=== PATIENT | female | born 1995 | race Caucasian/White ===

== ENCOUNTER 2016-09-30 07:08 | Emergency (ER) | payer OTHER ==
--- NOTE | 2016-09-30 07:47 | EDDOCDS ---
Nurse's Notes [facility] Name: Brenda Ramirez Age: 21 yrs Sex: Female : 1995 Arrival Date: 09/30/2016 Time: 07:08 Bed I2 / M2 Private MD: Diagnosis: Urinary tract infection, site not specified;Acute cystitis with hematuria Presentation: 09/30 07:17 Presenting complaint: Patient states: Urinary frequency over the past week pain with mlb1 urination and hematuria this am. Adult Sepsis Screening: The patient does not have new or worsening altered mentation. Patient's respiratory rate is less than 22. Systolic blood pressure is greater than 100. Patient has a qSOFA score of 0- Negative Sepsis Screen. Suicide/Homicide risk assessment- the patient denies having any suicidal and/or homicidal ideations and does not present with any other emotional, behavioral or mental health complaints. 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 Transition of care: patient was not received from another setting of care. 07:17 Acuity: TERRENCE Level 4 mlb1 07:17 Method Of Arrival: Walkin/Carried/Asstd mlb1 Triage Assessment: 07:20 General: Appears in no apparent distress, Behavior is appropriate for age, cooperative. mlb1 Pain: Denies pain. Pt Declines HIV testing. : Reports burning with urination pain with urination. 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 unknown for depression daily 2. NuvaRing 0.12-0.015 mg/24 hr vaginal ring 1 vaginal ring once moly 3. unknown for anxiety - PMHx: Ovarian cyst; Anxiety; Depression; - PSHx: Laparoscopy; Appendectomy; - Social history: Smoking status: Patient states was never smoker of tobacco. No barriers to communication noted, The patient speaks fluent Nicaraguan, Speaks appropriately for age. - Family history: No immediate family members are acutely ill. - : The pt / caregiver states he / she is not on anticoagulants. Home medication list is obtained from the patient. - Exposure Risk Screening:: None identified. Screenin:45 Screening information is obtained from the patient. Fall risk: No risks identified. nn1 Assistance ADL's: requires no assistance with activities of daily living. Abuse/DV Screen: The patient / caregiver reports he/she is: not in a situation that causes fear, pain or injury. Nutritional screening: No deficits noted. Advance Directives: Currently, there is no health care proxy. home support is adequate. Assessment: 07:42 General: Appears in no apparent distress, comfortable, Behavior is appropriate for age, nn1 cooperative. Pain: Location: pelvis. Neurological: Level of Consciousness is awake, alert, obeys commands. Respiratory: No deficits noted. : Urine is blood tinged, Reports burning with urination hematuria vaginal bleeding that is. Derm: Skin is pink, warm & dry. Vital Signs: 07:20 BP 138 / 91; Pulse 78; Resp 16; Temp 98.6(TE); Pulse Ox 98% on R/A; Weight 72.57 kg mlb1 (R); Height 5 ft. 5 in. (165.10 cm); Pain 0/10; 07:20 Body Mass Index 26.63 (72.57 kg, 165.10 cm) mlb1 Vitals: 07:20 Log In Time: September 30, 2016 at 07:08. mlb1 ED Course: 07:09 Patient visited by Porter Watkins Reg. pm4 07:09 Patient moved to Waiting pm4 07:17 Patient visited by Leodan Villatoro, CECY. mlb1 07:18 Triage Initiated mlb1 07:21 Patient visited by Leodan Villatoro RN. mlb1 07:21 Patient moved to I2 / M2 mlb1 07:22 Bert Gao PA is PHCP. btw 07:22 Estephania Fung MD is Attending Physician. btw 07:22 Patient visited by Bert Gao PA. btw 07:31 Patient visited by Luana Sinha PCA. jlf 07:40 [facility]. btw 07:45 No IV's were initiated during this patient's visit. No procedures done that require nn1 assistance. Urine collected. Clean catch specimen. Urine specimen sent to lab. 07:46 The patient / caregiver is instructed regarding the plan of care and ED course. nn1 Point of Care Testing: Urine Dip: 07:40 pH: 1.02; ; Specific [place]: 5.0; Ketones: Negative; Glucose: Negative; Protein: 500 nn1 mg/dL; Leukocytes: Positive (++); Nitrite: Positive (+) ; Blood: 250 Alex/ L; Bilirubin: Negative ; Urobilinogen: Normal 07:40 Exp: 08/2017; Lot #: [id number]; nn1 Ranges: Order Results: There are currently no results for this order. Outcome: 07:41 Discharge ordered by Provider. btw 07:45 Discharge Assessment: Patient awake, alert and oriented x 3. No cognitive and/or nn1 functional deficits noted. Patient verbalized understanding of disposition instructions. patient administered narcotics - no. The following High Risk Discharge criteria are identified: None. Discharged to home ambulatory. Condition: good Condition: stable. No special radiology studies were completed. Property :Personal belongings accompany Pt. 07:46 Patient left the ED. nn1 Signatures: Leodan Villatoro, RN RN mlb1 Bert Gao PA PA btw Luana Sinha, EDUARDO ARTIST AGENT Homero Loja,CECY RN nn1 Porter Watkins, Reg Reg pm4 MTDD
--- NOTE | 2016-09-30 07:47 | EDDOCDS ---
Physician Documentation [facility] Name: Brenda Ramirez Age: 21 yrs Sex: Female : 1995 Arrival Date: 09/30/2016 Time: 07:08 Bed I2 / M2 Private MD: Disposition: 09/30/16 07:41 Discharged to Home/Self Care. Impression: Urinary tract infection, site not specified, Acute cystitis with hematuria. - Condition is Stable. - Discharge Instructions: Urinary Tract Infection, [id number]. - Prescriptions for Pyridium 200 mg Oral Tablet - take 1 tablet by ORAL route every 8 hours for 3 days; 9 tablet. Bactrim DS 800- 160 mg Oral Tablet - take 1 tablet by ORAL route every 12 hours for 10 days; 20 tablet. - Medication Reconciliation, Local Pharmacy Hours form. - Follow up: Akil Gilliam [facility]; When: Call to arrange an appointment; Reason: Further diagnostic work-up, Recheck today's complaints, Continuance of care. - Problem is new. - Symptoms are unchanged. Historical: - Allergies: no known allergies; - Home Meds: 1. unknown for depression daily 2. NuvaRing 0.12-0.015 mg/24 hr vaginal ring 1 vaginal ring once moly 3. unknown for anxiety - PMHx: Ovarian cyst; Anxiety; Depression; - PSHx: Laparoscopy; Appendectomy; - Social history: Smoking status: Patient states was never smoker of tobacco. No barriers to communication noted, The patient speaks fluent Belarusian, Speaks appropriately for age. - Family history: No immediate family members are acutely ill. - : The pt / caregiver states he / she is not on anticoagulants. Home medication list is obtained from the patient. - Exposure Risk Screening:: None identified. 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 5 in. (165.10 cm); Pain 0/10; 07:20 Body Mass Index 26.63 (72.57 kg, 165.10 cm) mlb1 MDM: 07:20 Urine Dip ordered. btw 07:21 Urine Culture Ordered. EDMS Point of Care Testing: Urine Dip: 07:40 pH: 1.02; ; Specific [place]: 5.0; Ketones: Negative; Glucose: Negative; Protein: 500 nn1 mg/dL; Leukocytes: Positive (++); Nitrite: Positive (+) ; Blood: 250 Alex/ L; Bilirubin: Negative ; Urobilinogen: Normal 07:40 Exp: 08/2017; Lot #: [id number]; nn1 Ranges: Signatures: Dispatcher [employer] [facility] Leodan Villatoro RN RN mlb1 Bert Gao PA PA btw Nunez, Nikkole,RN RN nn1 MTDD
--- NOTE | 2016-10-02 08:47 | EDDOCDS ---
Nurse's Notes [facility] Name: Brenda Ramirez Age: 21 yrs Sex: Female : 1995 Arrival Date: 09/30/2016 Time: 07:08 Bed I2 / M2 Private MD: Diagnosis: Urinary tract infection, site not specified;Acute cystitis with hematuria Presentation: 09/30 07:17 Presenting complaint: Patient states: Urinary frequency over the past week pain with mlb1 urination and hematuria this am. Adult Sepsis Screening: The patient does not have new or worsening altered mentation. Patient's respiratory rate is less than 22. Systolic blood pressure is greater than 100. Patient has a qSOFA score of 0- Negative Sepsis Screen. Suicide/Homicide risk assessment- the patient denies having any suicidal and/or homicidal ideations and does not present with any other emotional, behavioral or mental health complaints. 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 Transition of care: patient was not received from another setting of care. 07:17 Acuity: TERRENCE Level 4 mlb1 07:17 Method Of Arrival: Walkin/Carried/Asstd mlb1 Triage Assessment: 07:20 General: Appears in no apparent distress, Behavior is appropriate for age, cooperative. mlb1 Pain: Denies pain. Pt Declines HIV testing. : Reports burning with urination pain with urination. 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 unknown for depression daily 2. NuvaRing 0.12-0.015 mg/24 hr vaginal ring 1 vaginal ring once moly 3. unknown for anxiety - PMHx: Ovarian cyst; Anxiety; Depression; - PSHx: Laparoscopy; Appendectomy; - Social history: Smoking status: Patient states was never smoker of tobacco. No barriers to communication noted, The patient speaks fluent [place]ibian, Speaks appropriately for age. - Family history: No immediate family members are acutely ill. - : The pt / caregiver states he / she is not on anticoagulants. Home medication list is obtained from the patient. - Exposure Risk Screening:: None identified. Screenin:45 Screening information is obtained from the patient. Fall risk: No risks identified. nn1 Assistance ADL's: requires no assistance with activities of daily living. Abuse/DV Screen: The patient / caregiver reports he/she is: not in a situation that causes fear, pain or injury. Nutritional screening: No deficits noted. Advance Directives: Currently, there is no health care proxy. home support is adequate. Assessment: 07:42 General: Appears in no apparent distress, comfortable, Behavior is appropriate for age, nn1 cooperative. Pain: Location: pelvis. Neurological: Level of Consciousness is awake, alert, obeys commands. Respiratory: No deficits noted. : Urine is blood tinged, Reports burning with urination hematuria vaginal bleeding that is. Derm: Skin is pink, warm & dry. Vital Signs: 07:20 BP 138 / 91; Pulse 78; Resp 16; Temp 98.6(TE); Pulse Ox 98% on R/A; Weight 72.57 kg mlb1 (R); Height 5 ft. 5 in. (165.10 cm); Pain 0/10; 07:20 Body Mass Index 26.63 (72.57 kg, 165.10 cm) mlb1 Vitals: 07:20 Log In Time: September 30, 2016 at 07:08. mlb1 ED Course: 07:09 Patient visited by Porter Watkins Reg. pm4 07:09 Patient moved to Waiting pm4 07:17 Patient visited by Leodan Villatoro, RN. mlb1 07:18 Triage Initiated mlb1 07:21 Patient visited by Leodan Villatoro, CECY. mlb1 07:21 Patient moved to I2 / M2 mlb1 07:22 Bert Gao PA is PHCP. btw 07:22 Estephania Fung MD is Attending Physician. btw 07:22 Patient visited by Bert Gao PA. btw 07:31 Patient visited by Luana Sinha PCA. jlf 07:40 [facility]. btw 07:45 No IV's were initiated during this patient's visit. No procedures done that require nn1 assistance. Urine collected. Clean catch specimen. Urine specimen sent to lab. 07:46 The patient / caregiver is instructed regarding the plan of care and ED course. nn1 13:18 T-Sheet-- Draft Copy was scanned into [employer] and attached to record. Point of Care Testing: Urine Dip: 07:40 pH: 1.02; ; Specific [place]: 5.0; Ketones: Negative; Glucose: Negative; Protein: 500 nn1 mg/dL; Leukocytes: Positive (++); Nitrite: Positive (+) ; Blood: 250 Alex/ L; Bilirubin: Negative ; Urobilinogen: Normal 07:40 Exp: 08/2017; Lot #: [id number]; nn1 Ranges: Order Results: Lab Order: Urine Culture; SPEC'M 09/30/16 07:33 Test: URINE CULTURE; Value: URINE CULTURE RESULT NO GROWTH CLINICAL SIGNIFICANCE 1 ORGANISM; Status: F Outcome: 07:41 Discharge ordered by Provider. btw 07:45 Discharge Assessment: Patient awake, alert and oriented x 3. No cognitive and/or nn1 functional deficits noted. Patient verbalized understanding of disposition instructions. patient administered narcotics - no. The following High Risk Discharge criteria are identified: None. Discharged to home ambulatory. Condition: good Condition: stable. No special radiology studies were completed. Property :Personal belongings accompany Pt. 07:46 Patient left the ED. nn1 Signatures: Johanna Umaña, Reg Reg gb Leodan Villatoro RN RN mlb1 Bert Gao PA PA btw Luana Sinha, EDUARDO CONVEYOR MECHANIC Homero LojaRN RN nn1 Porter Watkins, Reg Reg pm4 Chart Complete MTDD
--- NOTE | 2016-10-02 08:47 | EDDOCDS ---
Physician Documentation [facility] Name: Brenda Ramirez Age: 21 yrs Sex: Female : 1995 Arrival Date: 09/30/2016 Time: 07:08 Bed I2 / M2 Private MD: Disposition: 09/30/16 07:41 Discharged to Home/Self Care. Impression: Urinary tract infection, site not specified, Acute cystitis with hematuria. - Condition is Stable. - Discharge Instructions: Urinary Tract Infection, [id number]. - Prescriptions for Pyridium 200 mg Oral Tablet - take 1 tablet by ORAL route every 8 hours for 3 days; 9 tablet. Bactrim DS 800- 160 mg Oral Tablet - take 1 tablet by ORAL route every 12 hours for 10 days; 20 tablet. - Medication Reconciliation, Local Pharmacy Hours form. - Follow up: Akil Gilliam [facility]; When: Call to arrange an appointment; Reason: Further diagnostic work-up, Recheck today's complaints, Continuance of care. - Problem is new. - Symptoms are unchanged. Historical: - Allergies: no known allergies; - Home Meds: 1. unknown for depression daily 2. NuvaRing 0.12-0.015 mg/24 hr vaginal ring 1 vaginal ring once moly 3. unknown for anxiety - PMHx: Ovarian cyst; Anxiety; Depression; - PSHx: Laparoscopy; Appendectomy; - Social history: Smoking status: Patient states was never smoker of tobacco. No barriers to communication noted, The patient speaks fluent Turkish, Speaks appropriately for age. - Family history: No immediate family members are acutely ill. - : The pt / caregiver states he / she is not on anticoagulants. Home medication list is obtained from the patient. - Exposure Risk Screening:: None identified. 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 5 in. (165.10 cm); Pain 0/10; 07:20 Body Mass Index 26.63 (72.57 kg, 165.10 cm) mlb1 MDM: 07:20 Urine Dip ordered. btw 07:21 Urine Culture Ordered. EDMS 13:18 T-Sheet-- Draft Copy was scanned into [employer] and attached to record. Point of Care Testing: Urine Dip: 07:40 pH: 1.02; ; Specific [place]: 5.0; Ketones: Negative; Glucose: Negative; Protein: 500 nn1 mg/dL; Leukocytes: Positive (++); Nitrite: Positive (+) ; Blood: 250 Alex/ L; Bilirubin: Negative ; Urobilinogen: Normal 07:40 Exp: 08/2017; Lot #: [id number]; nn1 Ranges: Signatures: Dispatcher [employer] EDMS Johanna Umaña, Reg Reg gb Leodan Villatoro RN RN mlb1 Bert Gao PA PA btw Nunez, NikkoleRN RN nn1 The chart was reviewed and I authenticate all verbal orders and agree with the evaluation and treatment provided.Attachments: 13:18 T-Sheet-- Draft Copy gb Chart Complete MTDD
--- NOTE | 2016-10-02 08:47 | EDDOCDS ---
Physician Documentation [facility] Name: Brenda Ramirez Age: 21 yrs Sex: Female : 1995 Arrival Date: 09/30/2016 Time: 07:08 Bed I2 / M2 Private MD: Disposition: 09/30/16 07:41 Discharged to Home/Self Care. Impression: Urinary tract infection, site not specified, Acute cystitis with hematuria. - Condition is Stable. - Discharge Instructions: Urinary Tract Infection, Rmlj-[id number]. - Prescriptions for Pyridium 200 mg Oral Tablet - take 1 tablet by ORAL route every 8 hours for 3 days; 9 tablet. Bactrim DS 800- 160 mg Oral Tablet - take 1 tablet by ORAL route every 12 hours for 10 days; 20 tablet. - Medication Reconciliation, Local Pharmacy Hours form. - Follow up: Akil Gilliam [facility]; When: Call to arrange an appointment; Reason: Further diagnostic work-up, Recheck today's complaints, Continuance of care. - Problem is new. - Symptoms are unchanged. Historical: - Allergies: no known allergies; - Home Meds: 1. unknown for depression daily 2. NuvaRing 0.12-0.015 mg/24 hr vaginal ring 1 vaginal ring once moly 3. unknown for anxiety - PMHx: Ovarian cyst; Anxiety; Depression; - PSHx: Laparoscopy; Appendectomy; - Social history: Smoking status: Patient states was never smoker of tobacco. No barriers to communication noted, The patient speaks fluent Malay, Speaks appropriately for age. - Family history: No immediate family members are acutely ill. - : The pt / caregiver states he / she is not on anticoagulants. Home medication list is obtained from the patient. - Exposure Risk Screening:: None identified. 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 5 in. (165.10 cm); Pain 0/10; 07:20 Body Mass Index 26.63 (72.57 kg, 165.10 cm) mlb1 MDM: 07:20 Urine Dip ordered. btw 07:21 Urine Culture Ordered. EDMS 13:18 T-Sheet-- Draft Copy was scanned into [employer] and attached to record. Point of Care Testing: Urine Dip: 07:40 pH: 1.02; ; Specific [place]: 5.0; Ketones: Negative; Glucose: Negative; Protein: 500 nn1 mg/dL; Leukocytes: Positive (++); Nitrite: Positive (+) ; Blood: 250 Alex/ L; Bilirubin: Negative ; Urobilinogen: Normal 07:40 Exp: 08/2017; Lot #: [id number]; nn1 Ranges: Signatures: Dispatcher [employer] EDMS Johanna Umaña, Reg Reg gb Leodan Villatoro RN RN mlb1 Bert Gao PA PA btw Nunez, NikkoleRN RN nn1 The chart was reviewed and I authenticate all verbal orders and agree with the evaluation and treatment provided.Attachments: 13:18 T-Sheet-- Draft Copy gb Chart Complete MTDD
== END 2016-09-30 07:46 | disposition home or self-care (01) ==
LOC: M ED 07:08
DX: N30.01 Acute cystitis with hematuria (principal); N83.209 Unspecified ovarian cyst, unspecified side; F41.9 Anxiety disorder, unspecified; F32.9 Major depressive disorder, single episode, unspecified; Z79.3 Long term (current) use of hormonal contraceptives; Z79.899 Other long term (current) drug therapy

== ENCOUNTER → 2017-03-02 | Outpatient (CLI) | payer OTHER ==
[~2017-03-02] MED LIST: CONRAY-43 43% 50ML VIAL (Q9960) As Ordered ONE; LIDOCAINE 1% MDV 20ML VIAL As Ordered ONE; TRIAMCINOLONE ACETONIDE SUSP 40 MG/ML VIAL (J3301) As Ordered ONE
--- NOTE | 2017-03-02 16:18 | REP ---
RIGHT HIP INJECTION: The procedure was performed under the direct supervision of Dr. Garcia. The benefits and risks including, but not limited to pain, infection, bleeding, and anaphylaxis were explained to the patient and informed consent was obtained. The right femoral neck was localized using fluoroscopic guidance. The skin was prepped and draped in a sterile fashion. 1% lidocaine was used as a local anesthetic. Using fluoroscopic guidance a 22-gauge spinal needle was inserted and advanced to the femoral neck. 0.5 mL of Conray-43 was injected to verify placement. 10 mL of a solution containing 9 mL of 1% Xylocaine and 1 mL of Kenalog 40 mg was injected. The needle was then removed. The patient tolerated the procedure well and there were no immediate complications. 1 second of fluoroscopic time was utilized for this procedure. Reviewed by JAS Gómez 03/02/2017 04:25 PEdited and Signed by John Garcia MD 03/03/2017 05:17 P
== END ==
LOC: M RADPRO 09:55
PROVIDERS: ATTEND Orthopaedic Surgery
DX: M25.551 Pain in right hip (principal)
CPT/HCPCS: 20610; 77002; J3301; Q9960

== ENCOUNTER 2017-06-21 11:09 | Inpatient (IN) | payer OTHER ==
[~2017-06-21] VITALS: Ht 165.1 cm; Wt 72.7 kg
[2017-06-21] MEDS ORDERED: FLUO10CA9 PO (11:17)
[2017-06-21] MEDS ORDERED: HYDR50TA70 PO (11:17)
[2017-06-21] MEDS ORDERED: NUVAMIS2 PV (11:17)
[2017-06-21 12:23] LABS: MEAN CORPUSCULAR HEMOGLOBIN 30.5 pg (27.0-33.0); MEAN CORPUSCULAR HGB CONC 35.2 g/dl (32.0-36.5); MEAN CORPUSCULAR VOLUME 86.8 fl (80.0-96.0); RED CELL DISTRIBUTION WIDTH 11.9 % (11.5-14.5); WHITE BLOOD COUNT 7.2 10^3/uL (4.0-10.0)
[2017-06-21 12:42] LABS: CONTROL LINE HCG INT CTR LINE PRESENT
[2017-06-21 12:45] LABS: METHADONE URINE NEGATIVE (NEGATIVE)
[2017-06-21 12:58] LABS: ANION GAP 8 MEQ/L (8-16); AST/SGOT 13 U/L (15-37); BLOOD UREA NITROGEN 13 MG/DL (7-18); CALCIUM LEVEL 9.1 MG/DL (8.5-10.1); CARBON DIOXIDE LEVEL 27 MEQ/L (21-32); CHLORIDE LEVEL 104 MEQ/L (98-107); GLUCOSE, FASTING 80 MG/DL (70-105); SODIUM LEVEL 139 MEQ/L (136-145)
[2017-06-21 12:59] LABS: ALBUMIN 3.9 GM/DL (3.2-5.2); ALBUMIN/GLOBULIN RATIO 1.11 (1.00-1.93); ALKALINE PHOSPHATASE 42 U/L (45-117); ALT/SGPT 18 U/L (12-78); BILIRUBIN,DIRECT 0.1 MG/DL (0.0-0.2); BILIRUBIN,TOTAL 0.5 MG/DL (0.2-1.0); TOTAL PROTEIN 7.4 GM/DL (6.4-8.2)
[2017-06-21] MEDS ORDERED: SUMA100T2 PO (15:12)
[2017-06-21 16:37] VITALS: BP 131/81
[2017-06-21] MEDS ORDERED: MAALOX 30 ML SUSP *UDC PO PRN (17:15)
[2017-06-21] MEDS ORDERED: traZODone 50 MG TAB PO PRN (17:15)
[2017-06-21] MEDS ORDERED: SUMAtriptan SUCCINATE 25 MG TAB PO PRN (18:00)
[2017-06-21] MEDS ORDERED: SUMAtriptan SUCCINATE 25 MG TAB PO SCH (21:00)
[2017-06-22 06:00] VITALS: BP 114/59
[2017-06-22] MEDS: hydrOXYzine 50 MG TAB PO PRN (08:47)
[2017-06-22] MEDS: FLUoxetine 10 MG CAP PO SCH (08:48)
[2017-06-22] MEDS ORDERED: SUMAtriptan SUCCINATE 25 MG TAB PO PRN (10:00)
--- NOTE | 2017-06-22 10:11 | HPEPDOC ---
[facility] Medical History & Physical Date of Admission Jun 21, 2017 History and Physical PCP: [facility] ATTENDING: Dr. Regan Lerma HPI: 21 yoF admitted to [facility] for unspecified depressive disorder, being medically examined today. She states she has been having chronic right hip pain. She has been following with [facility] see regarding this issue. She was seen by orthopedics. She was also evaluated by chiropractics. She was seen by physical therapy. It was felt to possibly be bursitis. She did have x-ray completed, CT scan, and MRI completed of the right hip and lumbosacral spine. She did receive injection for her pain. She states all of these measures were ineffective. She was advised to take ibuprofen for her pain which she states is ineffective. She is requesting to see pain management for further opinion. She denies prior injury. Denies any fevers, chills, weakness, fatigue, RAM, CP, SOB, cough, palpitations, abdominal pain, N/V/D or changes in bowel or bladder habits. 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 ROS: As noted in HPI, otherwise 11pt ROS of systems reviewed and remarkable only for LMP 06/03/17. PE: GEN: 21 yo F, appears stated age. Well-nourished, well developed. No acute distress. Alert and oriented x 3. Pleasant, interactive. HEENT: Normocephalic, atraumatic. Pupils are equal, round, and reactive to light. Extraocular movements are intact. No nystagmus appreciated. Sclera are nonicteric. Conjunctiva without injection. Nose midline. Nasal turbinates without bogginess. EACs both patent BL. TMs both visualized and mcdaniels with good cone of light, no bulging or erythema. No facial asymmetry. Moist mucous membranes. Dentition fair. Pharynx pink and moist, no cobblestoning. Neck supple , trachea midline. No lymphadenopathy or thyromegaly appreciated. CHEST: Regular rate and rhythm, +S1, +S2 LUNGS: Clear to auscultation bilaterally. No wheezes, rales, or rhonchi. Breathing appears symmetric and easy. Patient is speaking in full sentences. No accessory muscle use. ABD: Round, soft, non-tender, non-distended. +Bowel sounds throughout. No rebound or guarding. No costovertebral angle tenderness. EXT: Pulses 2+ bilaterally dorsalis pedis and radial. No lower extremity edema appreciated. SKIN: [place], dry, warm. Capillary refill <2sec. No rashes. NEURO: Alert and oriented x 3. Cranial nerves III-XII are intact. No focal deficits appreciated. EKG: pending A&P: 21 yoF admitted to [facility] for unspecified depressive disorder 1. Psych. Plan per Psychiatry. Obtain baseline EKG to assure the safety of psychiatric medications as they can prolong the QT interval. 2. Nicotine dependence. Patch available. 3. Chronic right hip pain. Request copy of x-ray, CT scan, and MRI of right hip and lumbosacral spine. Patient has tried physical therapy which she states is ineffective. Patient states she has tried chiropractic treatment which was ineffective. Patient states she has seen orthopedics with injections of the right hip which she states is ineffective. Patient states she has tried ibuprofen which has been ineffective. Continue Tylenol 650 mg every 6 hours as needed. Request Pain Management opinion for any further recommendations. 4. Follow up with PCP on discharge. 5. Continue NuvaRing. 6. Chronic migraine headache. Continue Imitrex 100 mg as needed at onset of headache. 7. Staff member Cyn present throughout exam. Vital Signs Vital Signs Date Time Temp Pulse Resp B/P (MAP) Pulse Ox O2 Delivery O2 Flow Rate FiO2 06/22/17 06:00 99.1 72 16 114/59 (77) Room Air 06/21/17 16:37 98 Laboratory Data Labs 24H Laboratory Tests 2 06/21/17 12:00: Anion Gap 8, Calcium Level 9.1, Aspartate Amino Transf (AST/SGOT) 13L, Alanine Aminotransferase (ALT/SGPT) 18, Alkaline Phosphatase 42L, Total Bilirubin 0.5, Direct Bilirubin 0.1, Total Protein 7.4, Albumin 3.9, Albumin/Globulin Ratio 1.11, Thyroid Stimulating Hormone (TSH) 1.940, Human Chorionic Gonadotropin, Qual NEGATIVE, Salicylates Level < 1.7L, Acetaminophen Level < 2.0L, Ethyl Alcohol Level 0.004 06/21/17 12:09: Urine Amphetamines Screen NEGATIVE, Urine Benzodiazepines Screen NEGATIVE, Urine Opiates Screen NEGATIVE, Urine Methadone Screen NEGATIVE, Urine Barbiturates Screen NEGATIVE, Urine Phencyclidine Screen NEGATIVE, Urine Cocaine Metabolite Screen NEGATIVE, Urine Cannabinoids Screen NEGATIVE CBC/BMP Laboratory Tests 06/21/17 12:00 Red Blood Count 4.62, Mean Corpuscular Volume 86.8, Mean Corpuscular Hemoglobin 30.5, Mean Corpuscular Hemoglobin Concent 35.2, Red Cell Distribution Width 11.9 Home Medications Scheduled (Nuvaring 0.12-0.015 mg/24Hr) 1 Mis Mis, 1 PV ASDIRECTED IN FOR 3 WEEKS, REMOVE FOR ONE Fluoxetine HCl (Fluoxetine HCl) 10 Mg Cap, 30 MG PO DAILY Scheduled PRN Hydroxyzine HCl (Hydroxyzine HCl) 50 Mg Tab, 50 MG PO Q4H PRN for ANXIETY Sumatriptan Succinate (Sumatriptan Succinate) 100 Mg Tab, 100 MG PO BID PRN for MIGRAINE Allergies Coded Allergies: No Known Drug Allergy (Unverified Allergy, Unknown, 01/20/16) Maci Griffith Jun 22, 2017 10:11
[2017-06-22] MEDS: ACETAMINOPHEN TAB 650MG DOSE (2X325MG) PO PRN (17:13)
[2017-06-22 18:00] VITALS: BP 102/72
--- NOTE | 2017-06-22 18:35 | CR ---
DATE OF CONSULTATION: 06/22/2017 CHIEF COMPLAINT: 1. Right low back pain. 2. Right hip pain. CONSULTATION REPORT FOR: FRANKY Aden HISTORY OF PRESENT ILLNESS: Brenda is a pleasant 21-year-old female who was admitted to inpatient mental health unit ([facility]) on 06/21/2017 for unspecified depressive disorder. Reports a year and a half history of persistent right hip and groin pain. Reports that this began after running. Pain was initially treated with ibuprofen for flare-ups. Pain became more intense about six months ago and she began to experience right leg pain and numbness. States that she had imaging over her lumbosacral spine and right hip to include MRIs. Was told that she has bursitis in her right hip. Has had right hip injections at orthopedics on [place] about six months ago and the patient states it made it worse. 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 She is depressed and states a lot of this stems from not being able to do the physical activity that she used to do to relieve stress and anxiety as well as anger. Pain is aggravated with running or activity. She has trialed physical therapy and regular senior care provider recently that the patient states made it worse. Rating pain level as a 6/10. PAST MEDICAL HISTORY: 1. Migraine headache. 2. Anxiety. 3. Depression. 4. Attention deficit disorder (ADD). 5. Chronic right hip pain. PAST SURGICAL HISTORY: 1. Exploratory laparoscopy. 2. Appendectomy. 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 [facility] [place]. She likes to fish for relaxation. She is single. Denies alcohol use. Denies illicit drug use. Does report that she does use vape inhalations. FAMILY HISTORY: Siblings, one brother and one sister. Both are alive with history of autism, anxiety, depression and hypertension. Mother with history of hypertension, SADD-alive. Father hypertension-alive. REVIEW OF SYSTEMS: An 11-point review of systems is reviewed and remarkable only positives are stated in the history of present illness (HPI). PHYSICAL EXAMINATION: Awake, alert, pleasant. Affect is depressed. Poor eye contact. VITAL SIGNS: Temperature 99.1, pulse 72, respiratory rate 16, blood pressure 114/59, oxygen saturation is 98% on room air. CARDIAC: S1, S2, normal rate and rhythm. RESPIRATORY: Lung sounds clear. Respirations nonlabored. NEUROMUSCULAR: Muscle strength over the lower extremities is 5/5. Muscle strength testing produces an increase in right low back pain. INSPECTION OF SPINE: Tenderness specifically noted over sacroiliac joint (SIJ) area, right greater than left. Reporting trigger points and increased pain with palpation of the upper right lumbar paraspinal region. Range of joint motion of the spine is full with some increases in pain noted. The patient finds it difficult to ambulate and is walking with a limp. Reports increased pain with any pressure applied to right leg. ASSESSMENT: 1. Probable sacroiliitis bilaterally, right greater than left. 2. Myofascial pain syndrome. PLAN: Recommend trial of tizanidine 4 mg every six hours as needed for pain. The patient states she has a referral to the pain clinic upon discharge per Akil Gilliam. She may be a candidate for trial of sacral iliac joint steroid injections per discretion of pain management on Akil Gilliam at discharge. Thank you for allowing us to participate in the care of your patient, Brenda Ramirez. If you have any questions or concerns, please do not hesitate to contact me.
--- NOTE | 2017-06-22 20:03 | ECGEPIP ---
Stationary ECG Study [facility] Test Date: 2017-06-22 Pat Name: TOMAS ALLEN Department: Room: [place] [address] Gender: F Intelligence Engineer: ZION : [id number] Requested By: aMci Griffith Order Number: [id number] Reading MD: Tigist Reeves Measurements Intervals [place] Rate: 64 P: 41 ME: 149 QRS: 55 QRSD: 89 T: 20 QT: 412 QTc: 425 Interpretive Statements SINUS RHYTHM NSSTTWA NO PRIOR Electronically Signed On 06-22-2017 20:03:00 EDT by Tigist Reeves
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
[2017-06-23 06:34] VITALS: BP 101/56
[2017-06-23] MEDS: FLUoxetine 10 MG CAP PO SCH (08:17)
[2017-06-23] MEDS: hydrOXYzine 50 MG TAB PO PRN (08:17)
--- NOTE | 2017-06-23 11:32 | REP ---
CT Head without contrast HISTORY: Tremors COMPARISON: None There is no intraparenchymal hemorrhage, acute infarct, mass or midline shift. The ventricular system is normal in appearance. There is no extra cerebral collection. There is no fracture. The visualized sinuses are clear. IMPRESSION: There is no intracranial lesion. Signed by Clint Scott MD 06/23/2017 11:23 A
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
--- NOTE | 2017-06-23 14:40 | IPNPDOC ---
Date Seen The patient was seen on 06/23/17. Progress Note PCP: [facility] ATTENDING: Dr. Regan Lerma HPI: 21 yoF admitted to [facility] for unspecified depressive disorder, requested to reevaluate today related to report of upper extremity shaking. She has reported she has been having chronic right hip pain. She has been following with [facility] regarding this issue. She was seen by orthopedics. She was also evaluated by chiropractics. She was seen by physical therapy. It was felt to possibly be bursitis. She did have x-ray completed, CT scan, and MRI completed of the right hip and lumbosacral spine. She did receive injection for her pain. She states all of these measures were ineffective. She was advised to take ibuprofen for her pain which she states is ineffective. She was seen by [facility] pain management this admission for opinion. She denies prior injury. She is also reporting chronic headaches which have been worse this admission. She states her headaches are worse with anxiety. The pain is all over her head. There is associated phonophobia. She reports no photophobia. She denies nausea, vomiting, dizziness, vertigo, dysarthria or dysphagia. If she does not take anything for the pain it lasts for several hours. If she takes Excedrin Migraine or Imitrex this resolves in approximately 30 minutes. She denies any neck pain. She reports no weakness, numbness and tingling in upper extremities. She has been reporting shaking episodes when she first wakes up in the morning. She states it is worse with anxiety. If she is anxious they can persist for several hours and resolves when she takes Atarax. She denies any shaky handwriting. She denies spilling food from a fork or spoon. She denies any unsteady gait. She denies any balance issues. She reports no presyncopal episodes or loss of consciousness. No tongue biting, unresponsive episodes or staring episodes. No history of seizure. Denies any fevers, chills, weakness, fatigue, RAM, CP, SOB, cough, palpitations, abdominal pain, N/V/D or changes in bowel or bladder habits. PMHx: Chronic right hip pain depression Anxiety Chronic migraine headache ADD PSHX: Exploratory laparoscopy Appendectomy PE: GEN: 21 yo F, appears stated age. Well-nourished, well developed. No acute distress. Alert and oriented x 3. Pleasant, interactive. HEENT: Normocephalic, atraumatic. Pupils are equal, round, and reactive to light. Extraocular movements are intact. No nystagmus appreciated. Sclera are nonicteric. Conjunctiva without injection. Nose midline. Nasal turbinates without bogginess. EACs both patent BL. TMs both visualized and mcdaniels with good cone of light, no bulging or erythema. No facial asymmetry. Moist mucous membranes. Dentition fair. Pharynx pink and moist, no cobblestoning. Neck supple , trachea midline. No lymphadenopathy or thyromegaly appreciated. CHEST: Regular rate and rhythm, +S1, +S2 LUNGS: Clear to auscultation bilaterally. No wheezes, rales, or rhonchi. Breathing appears symmetric and easy. Patient is speaking in full sentences. No accessory muscle use. ABD: Round, soft, non-tender, non-distended. +Bowel sounds throughout. No rebound or guarding. No costovertebral angle tenderness. EXT: Pulses 2+ bilaterally dorsalis pedis and radial. No lower extremity edema appreciated. SKIN: [place], dry, warm. Capillary refill <2sec. No rashes. NEURO: Alert and oriented x 3. Cranial nerves III-XII are intact. No focal deficits appreciated. There is no positional or resting tremor noted on exam. EK06/22/17 SINUS RHYTHM NSSTTWA NO PRIOR CT head 06/23/17 There is no intracranial lesion. A&P: 21 yoF admitted to [facility] for unspecified depressive disorder 1. Psych. Plan per Psychiatry. Obtain baseline EKG to assure the safety of psychiatric medications as they can prolong the QT interval. 2. Nicotine dependence. Patch available. 3. Chronic right hip pain. Requested copy of x-ray, CT scan, and MRI of right hip and lumbosacral spine. Patient has tried physical therapy which she states is ineffective. Patient states she has tried chiropractic treatment which was ineffective. Patient states she has seen orthopedics with injections of the right hip which she states is ineffective. Patient states she has tried ibuprofen which has been ineffective. Continue Tylenol 650 mg every 6 hours as needed. Patient was seen by [facility] Pain Management for opinion and any further recommendations. 4. Follow up with PCP on discharge. 5. Continue NuvaRing. 6. Chronic migraine headache. Continue Tylenol 650 mg every 6 hours as needed, Imitrex 100 mg as needed at onset of headache. Neurology opinion is requested for any further opinion. 7. Upper extremity tremor. TSH WNL. CT scan of head as noted above. Neurology opinion is requested for any further opinion. 8. Staff member Kristofer present throughout exam. VS, I&O, 24H, Fishbone Vital Signs/I&O Vital Signs Date Time Temp Pulse Resp B/P (MAP) Pulse Ox O2 Delivery O2 Flow Rate FiO2 06/23/17 06:34 98.0 72 16 101/56 (71) 06/22/17 06:00 Room Air 06/21/17 16:37 98 Maci Griffith Jun 23, 2017 14:40
[2017-06-23 18:49] VITALS: BP 119/68
[2017-06-23] MEDS: ACETAMINOPHEN TAB 650MG DOSE (2X325MG) PO PRN (20:47)
[2017-06-24 07:07] VITALS: BP 125/61
[2017-06-24] MEDS: hydrOXYzine 50 MG TAB PO PRN (08:30)
[2017-06-24] MEDS: SERTRALINE HCL 25 MG TABLET PO SCH (08:30)
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
[2017-06-24] MEDS: tiZANidine 4 MG TAB PO PRN (17:57)
[2017-06-24 19:00] VITALS: BP 119/57
[2017-06-25] MEDS ORDERED: tiZANidine 4 MG TAB PO PRN (01:00)
[2017-06-25] MEDS: IBUPROFEN 800 MG TAB PO PRN ×3 (01:31→21:32)
[2017-06-25] MEDS: ONDANSETRON 4 MG TAB (S0181) PO PRN ×2 (01:32→21:32)
[2017-06-25 07:01] VITALS: BP 115/67
[2017-06-25] MEDS: SERTRALINE HCL 25 MG TABLET PO SCH (09:18)
[2017-06-25] MEDS: hydrOXYzine 50 MG TAB PO PRN ×2 (09:18→21:32)
[2017-06-25 18:00] VITALS: BP 129/79
[2017-06-25] MEDS: tiZANidine 4 MG TAB PO PRN (21:32)
--- NOTE | 2017-06-25 22:30 | MHIPN ---
DATE: 06/25/2017 SUBJECTIVE: The patient today is mostly focused on having hip pain. She started to complain that it got really bad last night and we did start her on some ibuprofen 800 mg. She was complaining of the pain being so severe she was having some nausea, so we prescribed some Zofran also. I did review the consult that was done by the pain clinic, and they recommended the patient be started on a muscle relaxant which we did order. She continues to feel depressed, but again, she feels this mostly is secondary to her medical condition. MENTAL STATUS EXAMINATION: She is alert and oriented times three. Eye contact is fair. Psychomotor activity is decreased. She is verbally spontaneous. There is no formal thought disorder noted. Mood is depressed. Affect is constricted but appropriate to her mood. She is not psychotic, suicidal, or homicidal. Concentration is fair. Memory is fair. DIAGNOSIS: Depressive disorder due to another medical condition with major depressive-like episode. TREATMENT PLAN: At this point, we will continue to monitor the patient for continued resolution of suicidal ideation and continued stabilization. If the patient continues to have a lot of pain, we will re-consult the clinic on Tuesday.
--- NOTE | 2017-06-25 22:44 | CR ---
DATE OF CONSULTATION: 06/23/2017 REASON FOR CONSULTATION: Headaches and tremor. Brenda Ramirez is a 21-year-old white right-handed female with past medical history significant for migraine headaches. The patient states that she has been having headaches for a very long time. She also has been experiencing tremors of the upper extremities for approximately 2-3 years. She states her headaches are located in the right frontal region, described as pressure, occasionally the top of the head, which can at times be throbbing. She gets one to two migraines a week, lasting 1-4 hours each, resolving quicker with Excedrin Migraine. The pain ranges between 7-8 out of 10. The headaches are associated with light and sound sensitivity, nausea, vomiting, and occasional dizziness. She denies any change in vision or aura, sensory motor changes. She states her speech can be slurred and slightly slow. Her migraines worsen with activity and are better in a quiet dark room. Triggers include caffeine and stress. The patient is currently going to be started on 25 mg of Zoloft, which is new for her. The patient has never tried Imitrex before. Head CT on 06/23/2017 was negative. PAST MEDICAL HISTORY: 1. Depression. 2. Anxiety. 3. Migraine headaches. PAST SURGICAL HISTORY: None. FAMILY HISTORY: Mother with migraines. SOCIAL HISTORY: The patient currently uses a vapor. She denies use alcohol or illicit drugs. PHYSICAL EXAMINATION: Blood pressure 101/56, pulse rate 72, respiratory rate is 16, temperature 98 degrees Fahrenheit, oxygenation 99% on room air. Neurologic: The patient is alert, oriented to person, place, and time. Speech, language, comprehension, repetition are intact. Pupils are 5 mm, round, reactive to light. Extraocular movements are intact in all directions. Sensation in V1, V2, V3 is intact to light touch. No facial asymmetry to activation. Palate elevates symmetrically. Tongue is midline. No weakness of sternocleidomastoids bilaterally. Hearing is subjectively equal to finger rub. Strength 5/5 involving bilateral deltoids, biceps, triceps, iliopsoas, hamstrings. The patient demonstrates some pain on hip flexion on the right side. Deep tendon reflexes are to 2+ and symmetrical. Babinski signs are absent. Romberg testing is negative. Coordination: Normal [id number] without any ataxia or dysmetria. Gait is normal. ASSESSMENT: 1. Chronic intractable migraine headaches without aura, without status migrainosus. 2. Essential tremor of upper extremities. PLAN: 1. Agree with Imitrex, consider 50 mg dosage for the migraine, may repeat after 2 hours, maximum two tablets in 1 day, four tabs in 7 days. 2. Hold off on migraine preventative therapy at this time. Consider propranolol for future migraine preventative therapy, which can treat essential tremor as well. The patient can followup in the neurology clinic once discharged in approximately 4-6 weeks. DELICIA
[2017-06-26 07:09] VITALS: BP 127/59
[2017-06-26] MEDS: hydrOXYzine 50 MG TAB PO PRN ×2 (09:02→20:54)
[2017-06-26] MEDS: SERTRALINE HCL 25 MG TABLET PO SCH (09:02)
[2017-06-26] MEDS: IBUPROFEN 800 MG TAB PO PRN ×2 (09:42→20:55)
[2017-06-26 18:00] VITALS: BP 108/58
[2017-06-26] MEDS: ONDANSETRON 4 MG TAB (S0181) PO PRN (20:54)
[2017-06-26] MEDS: tiZANidine 4 MG TAB PO PRN (20:55)
[2017-06-27 06:44] VITALS: BP 139/71
[2017-06-27] MEDS: hydrOXYzine 50 MG TAB PO PRN ×2 (09:24→20:37)
[2017-06-27] MEDS: SERTRALINE HCL 25 MG TABLET PO SCH (09:24)
[2017-06-27] MEDS: IBUPROFEN 800 MG TAB PO PRN ×2 (09:25→20:37)
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
[2017-06-27 18:00] VITALS: BP 128/81
[2017-06-27] MEDS: tiZANidine 4 MG TAB PO PRN (20:37)
[2017-06-27] MEDS: ONDANSETRON 4 MG TAB (S0181) PO PRN (20:38)
[2017-06-28 06:53] VITALS: BP 121/75
[2017-06-28] MEDS: SERTRALINE HCL 25 MG TABLET PO SCH (08:20)
[2017-06-28] MEDS: IBUPROFEN 800 MG TAB PO PRN ×2 (08:21→20:59)
[2017-06-28] MEDS: hydrOXYzine 25 MG TAB PO PRN ×2 (08:22→21:00)
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
[2017-06-28 18:32] VITALS: BP 122/70
[2017-06-28] MEDS: tiZANidine 4 MG TAB PO PRN (20:59)
[2017-06-29 06:28] VITALS: BP 126/73
[2017-06-29] MEDS: SERTRALINE HCL 25 MG TABLET PO SCH (08:31)
[2017-06-29] MEDS: IBUPROFEN 800 MG TAB PO PRN ×2 (08:31→21:04)
[2017-06-29] MEDS: hydrOXYzine 25 MG TAB PO PRN ×2 (08:31→21:03)
[2017-06-29] MEDS: SODIUM CHLORIDE NASAL 0.65% SPRAY BTL (OCEAN) PRN ×2 (14:07→17:28)
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
[2017-06-29 18:21] VITALS: BP 130/80
[2017-06-29] MEDS: tiZANidine 4 MG TAB PO PRN (21:02)
[2017-06-30 06:00] VITALS: BP 122/74
[2017-06-30] MEDS: IBUPROFEN 800 MG TAB PO PRN ×2 (08:13→21:03)
[2017-06-30] MEDS: hydrOXYzine 25 MG TAB PO PRN ×2 (08:14→21:03)
[2017-06-30] MEDS: SERTRALINE HCL 50 MG TAB PO SCH (08:14)
[2017-06-30] MEDS: MOM 30ML SUSPENSION UDC PO PRN (11:59)
[2017-06-30 12:00] VITALS: BP 142/87
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
[2017-06-30] MEDS: SODIUM CHLORIDE NASAL 0.65% SPRAY BTL (OCEAN) PRN (14:51)
[2017-06-30 18:00] VITALS: BP 148/88
[2017-06-30] MEDS: tiZANidine 4 MG TAB PO PRN (21:03)
[2017-06-30 21:30] VITALS: BP 140/86
[2017-07-01 07:00] VITALS: BP 117/59
[2017-07-01] MEDS: hydrOXYzine 25 MG TAB PO PRN ×2 (08:25→21:06)
[2017-07-01] MEDS: IBUPROFEN 800 MG TAB PO PRN ×2 (08:25→21:07)
[2017-07-01] MEDS: SERTRALINE HCL 50 MG TAB PO SCH (08:26)
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
[2017-07-01] MEDS: SODIUM CHLORIDE NASAL 0.65% SPRAY BTL (OCEAN) PRN (12:29)
[2017-07-01] MEDS: MOM 30ML SUSPENSION UDC PO PRN (14:32)
--- NOTE | 2017-07-01 17:20 | IPN ---
DATE: 07/01/2017 HISTORY: I was asked to see Brenda again per request of Kalpesh Ko, PGY-1, for reports of side effects of slurred speech, headache, and dizziness with tizanidine that we recommended that she take as needed. Today, she is resting in bed upon arrival at 5 p.m. States that tizanidine taken at night is causing immediate side effects of headache and dizziness. Continues to complain of right groin and right hip pain. States that when she pushes on a certain aspect in the right groin area, her leg shoots up. I did examine the groin area with the presence of CECY Moreira. I could not appreciate any lumps. She was relatively nontender when I palpated the area on both sides, both sides being symmetrical. No redness or swelling appreciated, although when she pushes in a certain spot, she jerks her leg forward in pain. States that ibuprofen that she is taking on a routine basis helps her very much, going from an 8 down to a 5 or 4 level of pain. I would recommend trial of Robaxin 650 mg for muscle relaxant as needed and discontinue tizanidine. That can be prescribed every 8 hours as needed. Edited: 07/04/2017 [id number]
[2017-07-01 18:00] VITALS: BP 134/80
[2017-07-01] MEDS: tiZANidine 4 MG TAB PO PRN (21:06)
[2017-07-01] MEDS: DOCUSATE SODIUM 100 MG CAP PO PRN (21:06)
[2017-07-01 21:57] VITALS: BP 137/78
[2017-07-02 06:43] VITALS: BP 138/84
[2017-07-02] MEDS: SERTRALINE HCL 50 MG TAB PO SCH (08:41)
[2017-07-02] MEDS: hydrOXYzine 25 MG TAB PO PRN ×2 (08:41→20:53)
[2017-07-02] MEDS: IBUPROFEN 800 MG TAB PO PRN ×2 (08:43→20:54)
[2017-07-02] MEDS: DOCUSATE SODIUM 100 MG CAP PO PRN ×2 (08:44→20:54)
[2017-07-02] MEDS: SODIUM CHLORIDE NASAL 0.65% SPRAY BTL (OCEAN) PRN (11:39)
[2017-07-02 18:14] VITALS: BP 107/60
[2017-07-02] MEDS ORDERED: SERT50TA PO (19:02)
[2017-07-02] MEDS ORDERED: ZANA4TAB PO (19:02)
[2017-07-02] MEDS ORDERED: SUMA25TA3 PO (19:02)
[2017-07-02] MEDS ORDERED: IBUP80TA PO (19:02)
[2017-07-02] MEDS ORDERED: ARIP5TA PO (19:02)
[2017-07-02] MEDS ORDERED: ONDA4TAB5 PO (19:02)
[2017-07-02] MEDS ORDERED: COLA100C5 PO (19:02)
[2017-07-02] MEDS ORDERED: HYDR-3363 PO (19:02)
[2017-07-02] MEDS: ONDANSETRON 4 MG TAB (S0181) PO PRN (20:53)
[2017-07-03] MEDS ORDERED: SERTRALINE HCL 50 MG TAB PO ONE ×2 (02:00)
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
== END 2017-07-03 01:57 | DRG 885 ==
LOC: M ED 11:09 → M ED INP 15:40 → M PSY 16:25
PROVIDERS: ADMIT Psychiatry & Neurology Psychiatry; ATTEND Psychiatry & Neurology Psychiatry
DX: F31.9 Bipolar disorder, unspecified (principal); M79.7 Fibromyalgia; M46.1 Sacroiliitis, not elsewhere classified; G43.709 Chronic migraine without aura, not intractable, without status migrainosus; F06.32 Mood disorder due to known physiological condition with major depressive-like episode; M25.552 Pain in left hip; M25.551 Pain in right hip; F17.210 Nicotine dependence, cigarettes, uncomplicated; F41.9 Anxiety disorder, unspecified; Z91.5 Personal history of self-harm; Z79.899 Other long term (current) drug therapy

== ENCOUNTER 2017-08-05 14:58 | Emergency (ER) | payer OTHER ==
[~2017-08-05] VITALS: Ht 165.1 cm; Wt 80.4 kg
[~2017-08-05 14:58] MED LIST changes: +ARIP5TA PO; +COLA100C5 PO; -CONRAY-43 43% 50ML VIAL (Q9960) As Ordered ONE; +FLUO10CA9 PO; +HYDR-3363 PO; +HYDR50TA70 PO; +IBUP80TA PO; -LIDOCAINE 1% MDV 20ML VIAL As Ordered ONE; +NUVAMIS2 PV; +ONDA4TAB5 PO; +SERT50TA PO; +SUMA100T2 PO; +SUMA25TA3 PO; -TRIAMCINOLONE ACETONIDE SUSP 40 MG/ML VIAL (J3301) As Ordered ONE; +ZANA4TAB PO
[2017-08-05] MEDS ORDERED: PROP10TA56 PO (15:14)
[2017-08-05] MEDS ORDERED: BUSP15TA47 PO (15:14)
[2017-08-05 17:05] LABS: MEAN CORPUSCULAR HEMOGLOBIN 29.7 pg (27.0-33.0); MEAN CORPUSCULAR HGB CONC 33.7 g/dl (32.0-36.5); MEAN CORPUSCULAR VOLUME 88.1 fl (80.0-96.0); PLATELET COUNT, AUTOMATED 244 10^3/uL (150-450); RED CELL DISTRIBUTION WIDTH 11.9 % (11.5-14.5); WHITE BLOOD COUNT 8.5 10^3/uL (4.0-10.0)
[2017-08-05 17:15] LABS: CONTROL LINE HCG INT CTR LINE PRESENT
[2017-08-05] MEDS ORDERED: FLAG500T PO ×2 (17:48)
--- NOTE | 2017-08-05 18:11 | REP ---
Clinical: Abnormal uterine bleeding. Technique: Transabdominal pelvic ultrasound followed by transvaginal examination for better evaluation of the endometrium and adnexa with color Doppler evaluation of the ovaries. Findings: Bladder is unremarkable and measures 11.3 x 8.4 x 5.7 cm. Normal anteverted uterus measures 7.4 x 3.0 x 4.3 cm. Endometrial complex measures 2.3 mm thickness and no discrete uterine or endometrial abnormalities appreciated. Bilateral ovaries are normal in appearance and vascularity without torsion. Right ovary measures 2.7 x 2.3 x 3.1 cm; RI = 0.43. Left ovary measures 2.7 x 1.8 x 2.7 cm; RI = 0.44. No pelvic fluid or adnexal mass lesion. Impression: Normal pelvic ultrasound. Signed by Laith Fontanez MD 08/05/2017 06:02 P
[2017-08-05 18:18] VITALS: BP 140/90
== END 2017-08-05 18:20 | disposition home or self-care (01) ==
LOC: M ED 14:58
DX: N93.8 Other specified abnormal uterine and vaginal bleeding (principal); N76.0 Acute vaginitis; F99 Mental disorder, not otherwise specified; Z79.899 Other long term (current) drug therapy

== ENCOUNTER 2017-09-28 13:51 | Inpatient (IN) | payer OTHER ==
[2017-09-28 15:05] LABS: HEMATOCRIT 41.1 % (36.0-47.0); HEMOGLOBIN 14.1 g/dl (12.0-16.0); MEAN CORPUSCULAR HEMOGLOBIN 30.3 pg (27.0-33.0); MEAN CORPUSCULAR HGB CONC 34.3 g/dl (32.0-36.5); MEAN CORPUSCULAR VOLUME 88.2 fl (80.0-96.0); PLATELET COUNT, AUTOMATED 221 10^3/uL (150-450); RED BLOOD COUNT 4.66 10^6/uL (4.00-5.40); RED CELL DISTRIBUTION WIDTH 12.9 % (11.5-14.5); WHITE BLOOD COUNT 7.7 10^3/uL (4.0-10.0)
[2017-09-28 15:18] LABS: CONTROL LINE HCG INT CTR LINE PRESENT; HCG, SERUM QUALITATIVE NEGATIVE (NEGATIVE)
[2017-09-28 15:25] LABS: ALBUMIN 3.9 GM/DL (3.2-5.2); ALBUMIN/GLOBULIN RATIO 1.08 (1.00-1.93); ALKALINE PHOSPHATASE 61 U/L (45-117); ALT/SGPT 19 U/L (12-78); ANION GAP 7 MEQ/L (8-16); AST/SGOT 14 U/L (7-37); BILIRUBIN,DIRECT < 0.1 MG/DL (0.0-0.2); BILIRUBIN,TOTAL 0.2 MG/DL (0.2-1.0); BLOOD UREA NITROGEN 14 MG/DL (7-18); CALCIUM LEVEL 9.3 MG/DL (8.5-10.1); CARBON DIOXIDE LEVEL 28 MEQ/L (21-32); CHLORIDE LEVEL 105 MEQ/L (98-107); CREATININE FOR GFR 0.65 MG/DL (0.55-1.02); ETHYL ALCOHOL (ETHANOL) < 0.003 % (0.000-0.010); GLOMERULAR FILTRATION RATE > 60.0 (>60); GLUCOSE, FASTING 84 MG/DL (70-105); POTASSIUM SERUM 4.1 MEQ/L (3.5-5.1); SALICYLATE LEVEL 1.8 MG/DL (5.0-30.0); SODIUM LEVEL 140 MEQ/L (136-145); TOTAL PROTEIN 7.5 GM/DL (6.4-8.2)
[2017-09-28 15:31] LABS: ACETAMINOPHEN LEVEL < 2.0 UG/ML (10.0-30.0)
[2017-09-28 15:35] LABS: AMPHETAMINES LEVEL URINE NEGATIVE (NEGATIVE); BARBITURATES URINE NEGATIVE (NEGATIVE); BENZODIAZEPINES URINE NEGATIVE (NEGATIVE); CANNABINOIDS URINE NEGATIVE (NEGATIVE); COCAINE METABOLITE URINE NEGATIVE (NEGATIVE); METHADONE URINE NEGATIVE (NEGATIVE); OPIATES URINE NEGATIVE (NEGATIVE); PHENCYCLIDINE URINE NEGATIVE (NEGATIVE)
[2017-09-28] MEDS ORDERED: MAALOX 30 ML SUSP *UDC PO (16:15)
[2017-09-28] MEDS ORDERED: MOM 30ML SUSPENSION UDC PO (16:15)
[2017-09-28] MEDS: ACETAMINOPHEN TAB 650MG DOSE (2X325MG) PO (18:50)
[2017-09-28] MEDS: traZODone 50 MG TAB PO (20:59)
[2017-09-29] MEDS: NICOTINE 21MG/24HR 1 EA TRANSDERMAL TD (08:28)
[2017-09-29] MEDS: CYPROHEPTADINE 4 MG TAB PO (09:00)
[2017-09-29] MEDS: SERTRALINE 100 MG TAB PO ×3 (09:00→11:20)
[2017-09-29] MEDS: PROPRANOLOL 10 MG TAB PO ×2 (11:21→21:23)
[2017-09-29] MEDS: busPIRone 5 MG TAB PO ×2 (15:53→21:22)
[2017-09-29] MEDS ORDERED: PROPRANOLOL 10 MG TAB PO (21:00)
[2017-09-29] MEDS: AMITRIPTYLINE 50 MG TAB PO (21:22)
[2017-09-29] MEDS: traZODone 50 MG TAB PO (21:22)
[2017-09-30] MEDS: CYPROHEPTADINE 4 MG TAB PO (08:22)
[2017-09-30] MEDS: busPIRone 5 MG TAB PO ×3 (08:22→21:32)
[2017-09-30] MEDS: SERTRALINE 100 MG TAB PO (08:22)
[2017-09-30] MEDS: NICOTINE 21MG/24HR 1 EA TRANSDERMAL TD (08:23)
[2017-09-30] MEDS: PROPRANOLOL 10 MG TAB PO ×2 (08:23→21:32)
[2017-09-30] MEDS: traZODone 50 MG TAB PO (21:32)
[2017-09-30] MEDS: AMITRIPTYLINE 50 MG TAB PO (21:32)
[2017-10-01] MEDS: SERTRALINE 100 MG TAB PO (10:27)
[2017-10-01] MEDS: NICOTINE 21MG/24HR 1 EA TRANSDERMAL TD (10:27)
[2017-10-01] MEDS: PROPRANOLOL 10 MG TAB PO ×2 (10:28→22:08)
[2017-10-01] MEDS: busPIRone 5 MG TAB PO ×3 (10:29→22:09)
[2017-10-01] MEDS: traZODone 50 MG TAB PO (22:09)
[2017-10-01] MEDS: CYPROHEPTADINE 4 MG TAB PO (22:09)
[2017-10-01] MEDS: AMITRIPTYLINE 50 MG TAB PO (22:09)
[2017-10-02] MEDS: SERTRALINE 100 MG TAB PO (10:21)
[2017-10-02] MEDS: NICOTINE 21MG/24HR 1 EA TRANSDERMAL TD (10:21)
[2017-10-02] MEDS: busPIRone 5 MG TAB PO ×3 (10:22→21:59)
[2017-10-02] MEDS: PROPRANOLOL 10 MG TAB PO ×2 (10:22→22:00)
[2017-10-02] MEDS: traZODone 50 MG TAB PO (21:59)
[2017-10-02] MEDS: CYPROHEPTADINE 4 MG TAB PO (21:59)
[2017-10-03] MEDS: PROPRANOLOL 10 MG TAB PO ×2 (08:32→21:09)
[2017-10-03] MEDS: busPIRone 5 MG TAB PO ×2 (08:32→15:41)
[2017-10-03] MEDS: SERTRALINE 100 MG TAB PO (08:32)
[2017-10-03] MEDS: NICOTINE 21MG/24HR 1 EA TRANSDERMAL TD (08:33)
[2017-10-03] MEDS: traZODone 50 MG TAB PO (21:09)
[2017-10-04] MEDS: NICOTINE 21MG/24HR 1 EA TRANSDERMAL TD (08:49)
[2017-10-04] MEDS: busPIRone 5 MG TAB PO ×2 (08:49→21:32)
[2017-10-04] MEDS: SERTRALINE 100 MG TAB PO (08:49)
[2017-10-04] MEDS: PROPRANOLOL 10 MG TAB PO ×2 (08:49→21:32)
[2017-10-04] MEDS: TOPIRAMATE (TopAMAX) 25 MG TAB PO (08:49)
[2017-10-04] MEDS: traZODone 50 MG TAB PO (21:32)
[2017-10-05] MEDS: NICOTINE 21MG/24HR 1 EA TRANSDERMAL TD (08:57)
[2017-10-05] MEDS: SERTRALINE 100 MG TAB PO (08:57)
[2017-10-05] MEDS: busPIRone 5 MG TAB PO (08:57)
[2017-10-05] MEDS: TOPIRAMATE (TopAMAX) 25 MG TAB PO (08:58)
[2017-10-05] MEDS: PROPRANOLOL 10 MG TAB PO (08:58)
== END 2017-10-05 13:30 | disposition home or self-care (01) | DRG 885 ==
LOC: M ED 13:51 → M ED INP 16:08 → M PSY 17:26
DX: F33.2 Major depressive disorder, recurrent severe without psychotic features (principal); F43.10 Post-traumatic stress disorder, unspecified; F60.3 Borderline personality disorder; G43.709 Chronic migraine without aura, not intractable, without status migrainosus; G25.0 Essential tremor; F17.210 Nicotine dependence, cigarettes, uncomplicated; Z81.8 Family history of other mental and behavioral disorders; Z79.899 Other long term (current) drug therapy

== ENCOUNTER → 2017-10-07 | Outpatient (CLI) | payer OTHER | LOC: M CARPUL 11:03 | DX: R00.0 Tachycardia, unspecified (principal) | CPT/HCPCS: 93306 ==

== ENCOUNTER 2017-10-16 20:13 | Inpatient (IN) | payer OTHER ==
[2017-10-16] MEDS: ACETAMINOPHEN TAB 650MG DOSE (2X325MG) PO (21:30)
[2017-10-16 22:35] LABS: HEMATOCRIT 39.7 % (36.0-47.0); HEMOGLOBIN 13.8 g/dl (12.0-16.0); MEAN CORPUSCULAR HEMOGLOBIN 30.3 pg (27.0-33.0); MEAN CORPUSCULAR HGB CONC 34.8 g/dl (32.0-36.5); MEAN CORPUSCULAR VOLUME 87.1 fl (80.0-96.0); PLATELET COUNT, AUTOMATED 245 10^3/uL (150-450); RED BLOOD COUNT 4.56 10^6/uL (4.00-5.40); RED CELL DISTRIBUTION WIDTH 12.9 % (11.5-14.5); WHITE BLOOD COUNT 7.3 10^3/uL (4.0-10.0)
[2017-10-16 22:53] LABS: CONTROL LINE HCG INT CTR LINE PRESENT; HCG, SERUM QUALITATIVE NEGATIVE (NEGATIVE)
[2017-10-16 22:57] LABS: AMPHETAMINES LEVEL URINE NEGATIVE (NEGATIVE); BARBITURATES URINE NEGATIVE (NEGATIVE); BENZODIAZEPINES URINE NEGATIVE (NEGATIVE); CANNABINOIDS URINE NEGATIVE (NEGATIVE); COCAINE METABOLITE URINE NEGATIVE (NEGATIVE); METHADONE URINE NEGATIVE (NEGATIVE); OPIATES URINE NEGATIVE (NEGATIVE); PHENCYCLIDINE URINE NEGATIVE (NEGATIVE)
[2017-10-16 23:08] LABS: ALBUMIN 3.9 GM/DL (3.2-5.2); ALBUMIN/GLOBULIN RATIO 1.18 (1.00-1.93); ALKALINE PHOSPHATASE 49 U/L (45-117); ALT/SGPT 15 U/L (12-78); ANION GAP 6 MEQ/L (8-16); AST/SGOT 10 U/L (7-37); BILIRUBIN,DIRECT < 0.1 MG/DL (0.0-0.2); BILIRUBIN,TOTAL 0.3 MG/DL (0.2-1.0); BLOOD UREA NITROGEN 12 MG/DL (7-18); CARBON DIOXIDE LEVEL 27 MEQ/L (21-32); CHLORIDE LEVEL 109 MEQ/L (98-107); CREATININE FOR GFR 0.82 MG/DL (0.55-1.30); ETHYL ALCOHOL (ETHANOL) < 0.003 % (0.000-0.010); GLOMERULAR FILTRATION RATE > 60.0 (>60); GLUCOSE, FASTING 96 MG/DL (70-100); POTASSIUM SERUM 4.3 MEQ/L (3.5-5.1); SALICYLATE LEVEL < 1.7 MG/DL (5.0-30.0); SODIUM LEVEL 142 MEQ/L (136-145); TOTAL PROTEIN 7.2 GM/DL (6.4-8.2)
[2017-10-16 23:21] LABS: ACETAMINOPHEN LEVEL < 2.0 UG/ML (10.0-30.0)
[2017-10-16] MEDS ORDERED: MOM 30ML SUSPENSION UDC PO (23:30)
[2017-10-16] MEDS ORDERED: MAALOX 30 ML SUSP *UDC PO (23:30)
[2017-10-17] MEDS ORDERED: ENTER DRUG NAME HERE (PATIENT'S OWN MED) PV (09:00)
[2017-10-17] MEDS: SERTRALINE 100 MG TAB PO (09:28)
[2017-10-17] MEDS: TOPIRAMATE (TopAMAX) 25 MG TAB PO (09:28)
[2017-10-17] MEDS: PROPRANOLOL 10 MG TAB PO ×2 (09:29→21:33)
[2017-10-17] MEDS: traZODone 50 MG TAB PO (21:32)
[2017-10-17] MEDS: EUCERIN 120GM CREAM TOP (21:33)
[2017-10-18] MEDS: TOPIRAMATE (TopAMAX) 25 MG TAB PO (08:31)
[2017-10-18] MEDS: PROPRANOLOL 10 MG TAB PO ×2 (08:33→21:43)
[2017-10-18] MEDS: SERTRALINE 100 MG TAB PO (08:33)
[2017-10-18] MEDS: DULoxetine 30 MG CAP (CYMBALTA) PO (15:45)
[2017-10-18] MEDS: LITHIUM CARBONATE 300 MG CAP PO (21:00)
[2017-10-18] MEDS: traZODone 50 MG TAB PO (21:43)
[2017-10-18] MEDS: NICOTINE 21MG/24HR 1 EA TRANSDERMAL TD (21:45)
[2017-10-19] MEDS: DULoxetine 30 MG CAP (CYMBALTA) PO (08:34)
[2017-10-19] MEDS: PROPRANOLOL 10 MG TAB PO ×2 (08:34→22:38)
[2017-10-19] MEDS: TOPIRAMATE (TopAMAX) 25 MG TAB PO (08:35)
[2017-10-19] MEDS: ACETAMINOPHEN TAB 650MG DOSE (2X325MG) PO (18:28)
[2017-10-19] MEDS: LITHIUM CARBONATE 300 MG CAP PO (21:00)
[2017-10-19] MEDS: NICOTINE 21MG/24HR 1 EA TRANSDERMAL TD (22:34)
[2017-10-19] MEDS: traZODone 50 MG TAB PO (22:38)
[2017-10-20] MEDS: TOPIRAMATE (TopAMAX) 25 MG TAB PO (08:29)
[2017-10-20] MEDS: DULoxetine 30 MG CAP (CYMBALTA) PO (08:29)
[2017-10-20] MEDS: PROPRANOLOL 10 MG TAB PO ×2 (08:29→21:20)
[2017-10-20] MEDS: LITHIUM CARBONATE 300 MG CAP PO (21:00)
[2017-10-20] MEDS: NICOTINE 21MG/24HR 1 EA TRANSDERMAL TD (21:19)
[2017-10-20] MEDS: traZODone 100 MG TAB PO (21:19)
[2017-10-21] MEDS: PROPRANOLOL 10 MG TAB PO ×2 (09:00→21:22)
[2017-10-21] MEDS: DULoxetine 30 MG CAP (CYMBALTA) PO (09:00)
[2017-10-21] MEDS: TOPIRAMATE (TopAMAX) 25 MG TAB PO (09:00)
[2017-10-21] MEDS: EUCERIN 120GM CREAM TOP (09:02)
[2017-10-21] MEDS: LITHIUM CARBONATE 300 MG CAP PO (21:00)
[2017-10-21] MEDS: NICOTINE 21MG/24HR 1 EA TRANSDERMAL TD (21:23)
[2017-10-22] MEDS: ACETAMINOPHEN TAB 650MG DOSE (2X325MG) PO (03:57)
[2017-10-22] MEDS: PROPRANOLOL 10 MG TAB PO ×2 (08:47→21:12)
[2017-10-22] MEDS: TOPIRAMATE (TopAMAX) 25 MG TAB PO (08:47)
[2017-10-22] MEDS: DULoxetine 30 MG CAP (CYMBALTA) PO (08:47)
[2017-10-22] MEDS: LITHIUM CARBONATE 300 MG CAP PO (21:00)
[2017-10-22] MEDS: traZODone 50 MG TAB PO (21:13)
[2017-10-22] MEDS: EUCERIN 120GM CREAM TOP (21:13)
[2017-10-23] MEDS: DULoxetine 30 MG CAP (CYMBALTA) PO (09:05)
[2017-10-23] MEDS: TOPIRAMATE (TopAMAX) 25 MG TAB PO (09:05)
[2017-10-23] MEDS: PROPRANOLOL 10 MG TAB PO ×2 (09:07→21:12)
[2017-10-23] MEDS: NICOTINE 21MG/24HR 1 EA TRANSDERMAL TD (09:10)
[2017-10-23] MEDS: LITHIUM CARBONATE 300 MG CAP PO (21:00)
[2017-10-23] MEDS: traZODone 50 MG TAB PO (21:12)
[2017-10-24] MEDS: TOPIRAMATE (TopAMAX) 25 MG TAB PO (09:04)
[2017-10-24] MEDS: DULoxetine 30 MG CAP (CYMBALTA) PO (09:04)
[2017-10-24] MEDS: PROPRANOLOL 10 MG TAB PO (09:04)
[2017-10-24] MEDS: NICOTINE 21MG/24HR 1 EA TRANSDERMAL TD (09:06)
== END 2017-10-24 10:58 | disposition home or self-care (01) | DRG 885 ==
LOC: M PSY 10-17 01:18 → M ED 20:13 → M ED INP 23:22
DX: F33.2 Major depressive disorder, recurrent severe without psychotic features (principal); F43.10 Post-traumatic stress disorder, unspecified; F60.3 Borderline personality disorder; G43.709 Chronic migraine without aura, not intractable, without status migrainosus; F17.210 Nicotine dependence, cigarettes, uncomplicated; G25.0 Essential tremor; Z79.899 Other long term (current) drug therapy; Z81.8 Family history of other mental and behavioral disorders

== ENCOUNTER 2017-11-27 23:59 | Inpatient (IN) | payer OTHER ==
[2017-11-28 01:14] LABS: CONTROL LINE HCG INT CTR LINE PRESENT; HCG, SERUM QUALITATIVE NEGATIVE (NEGATIVE); HEMOGLOBIN 13.1 g/dl (12.0-16.0); MEAN CORPUSCULAR HEMOGLOBIN 30.3 pg (27.0-33.0); MEAN CORPUSCULAR HGB CONC 34.5 g/dl (32.0-36.5); PLATELET COUNT, AUTOMATED 213 10^3/uL (150-450); RED BLOOD COUNT 4.32 10^6/uL (4.00-5.40); RED CELL DISTRIBUTION WIDTH 12.1 % (11.5-14.5); WHITE BLOOD COUNT 6.5 10^3/uL (4.0-10.0)
[2017-11-28 01:22] LABS: AMPHETAMINES LEVEL URINE NEGATIVE (NEGATIVE); BARBITURATES URINE NEGATIVE (NEGATIVE); BENZODIAZEPINES URINE NEGATIVE (NEGATIVE); CANNABINOIDS URINE NEGATIVE (NEGATIVE); COCAINE METABOLITE URINE NEGATIVE (NEGATIVE); METHADONE URINE NEGATIVE (NEGATIVE); OPIATES URINE NEGATIVE (NEGATIVE); PHENCYCLIDINE URINE NEGATIVE (NEGATIVE)
[2017-11-28 01:31] LABS: ACETAMINOPHEN LEVEL < 2.0 UG/ML (10.0-30.0); ALBUMIN 3.3 GM/DL (3.2-5.2); ALBUMIN/GLOBULIN RATIO 0.97 (1.00-1.93); ALKALINE PHOSPHATASE 45 U/L (45-117); ALT/SGPT 15 U/L (12-78); ANION GAP 8 MEQ/L (8-16); AST/SGOT 9 U/L (7-37); BILIRUBIN,DIRECT < 0.1 MG/DL (0.0-0.2); BILIRUBIN,TOTAL 0.2 MG/DL (0.2-1.0); BLOOD UREA NITROGEN 16 MG/DL (7-18); CALCIUM LEVEL 8.7 MG/DL (8.5-10.1); CARBON DIOXIDE LEVEL 26 MEQ/L (21-32); CHLORIDE LEVEL 108 MEQ/L (98-107); CREATININE FOR GFR 0.85 MG/DL (0.55-1.30); ETHYL ALCOHOL (ETHANOL) < 0.003 % (0.000-0.010); GLOMERULAR FILTRATION RATE > 60.0 (>60); GLUCOSE, FASTING 90 MG/DL (70-100); POTASSIUM SERUM 4.3 MEQ/L (3.5-5.1); SALICYLATE LEVEL < 1.7 MG/DL (5.0-30.0); SODIUM LEVEL 142 MEQ/L (136-145); TOTAL PROTEIN 6.7 GM/DL (6.4-8.2)
[2017-11-28] MEDS ORDERED: MOM 30ML SUSPENSION UDC PO (02:15)
[2017-11-28] MEDS ORDERED: ACETAMINOPHEN TAB 650MG DOSE (2X325MG) PO (02:15)
[2017-11-28] MEDS ORDERED: MAALOX 30 ML SUSP *UDC PO (02:15)
[2017-11-28] MEDS: ESCITALOPRAM OXALATE 10 MG TAB (LEXAPRO) PO (08:47)
[2017-11-28] MEDS: NICOTINE 21MG/24HR 1 EA TRANSDERMAL TD (08:47)
[2017-11-28] MEDS: PROPRANOLOL 10 MG TAB PO ×2 (08:51→22:43)
[2017-11-28] MEDS: TOPIRAMATE (TopAMAX) 25 MG TAB PO ×2 (08:51→22:42)
[2017-11-28] MEDS ORDERED: ARIPiprazole 10 MG TAB PO (09:00)
[2017-11-28] MEDS: EUCERIN 120GM CREAM TOP ×2 (09:52→22:44)
[2017-11-28] MEDS: traZODone 50 MG TAB PO (22:42)
[2017-11-29] MEDS: PROPRANOLOL 10 MG TAB PO ×2 (09:22→21:59)
[2017-11-29] MEDS: ESCITALOPRAM OXALATE 10 MG TAB (LEXAPRO) PO (09:23)
[2017-11-29] MEDS: TOPIRAMATE (TopAMAX) 25 MG TAB PO ×2 (09:23→21:59)
[2017-11-29] MEDS: NICOTINE 21MG/24HR 1 EA TRANSDERMAL TD (09:23)
[2017-11-29] MEDS: EUCERIN 120GM CREAM TOP ×2 (09:25→21:00)
[2017-11-29] MEDS: traZODone 50 MG TAB PO (21:59)
[2017-11-30] MEDS: NICOTINE 21MG/24HR 1 EA TRANSDERMAL TD (08:18)
[2017-11-30] MEDS: EUCERIN 120GM CREAM TOP ×2 (08:19→22:36)
[2017-11-30] MEDS: PROPRANOLOL 10 MG TAB PO ×2 (08:19→22:35)
[2017-11-30] MEDS: TOPIRAMATE (TopAMAX) 25 MG TAB PO ×2 (08:19→22:36)
[2017-11-30] MEDS: ESCITALOPRAM OXALATE 10 MG TAB (LEXAPRO) PO (08:19)
[2017-12-01] MEDS: EUCERIN 120GM CREAM TOP ×2 (08:19→22:48)
[2017-12-01] MEDS: PROPRANOLOL 10 MG TAB PO ×2 (08:20→22:46)
[2017-12-01] MEDS: TOPIRAMATE (TopAMAX) 25 MG TAB PO ×2 (08:20→22:46)
[2017-12-01] MEDS: ESCITALOPRAM OXALATE 10 MG TAB (LEXAPRO) PO (08:20)
[2017-12-01] MEDS: NICOTINE 21MG/24HR 1 EA TRANSDERMAL TD (08:20)
[2017-12-01] MEDS: traZODone 50 MG TAB PO (22:47)
[2017-12-01] MEDS: MUPIROCIN 2% CREAM 30GM TOP (23:46)
[2017-12-02] MEDS: EUCERIN 120GM CREAM TOP ×2 (08:43→21:00)
[2017-12-02] MEDS: MUPIROCIN 2% CREAM 30GM TOP ×2 (08:43→21:00)
[2017-12-02] MEDS: NICOTINE 21MG/24HR 1 EA TRANSDERMAL TD (08:43)
[2017-12-02] MEDS: TOPIRAMATE (TopAMAX) 25 MG TAB PO ×3 (08:43→21:00)
[2017-12-02] MEDS: PROPRANOLOL 10 MG TAB PO ×2 (08:44→21:00)
[2017-12-02] MEDS: ESCITALOPRAM OXALATE 10 MG TAB (LEXAPRO) PO (08:44)
[2017-12-02] MEDS ORDERED: ENTER DRUG NAME HERE (PATIENT'S OWN MED) PV (09:00)
[2017-12-03 07:01] LABS: ALBUMIN 3.7 GM/DL (3.2-5.2); ALBUMIN/GLOBULIN RATIO 0.97 (1.00-1.93); ALKALINE PHOSPHATASE 58 U/L (45-117); ALT/SGPT 26 U/L (12-78); ANION GAP 7 MEQ/L (8-16); AST/SGOT 14 U/L (7-37); BILIRUBIN,TOTAL 0.3 MG/DL (0.2-1.0); BLOOD UREA NITROGEN 15 MG/DL (7-18); CALCIUM LEVEL 9.1 MG/DL (8.5-10.1); CARBON DIOXIDE LEVEL 26 MEQ/L (21-32); CHLORIDE LEVEL 110 MEQ/L (98-107); CREATININE FOR GFR 0.89 MG/DL (0.55-1.30); GLOMERULAR FILTRATION RATE > 60.0 (>60); GLUCOSE, FASTING 87 MG/DL (70-100); POTASSIUM SERUM 3.7 MEQ/L (3.5-5.1); SODIUM LEVEL 143 MEQ/L (136-145); TOTAL PROTEIN 7.5 GM/DL (6.4-8.2)
[2017-12-03] MEDS: MUPIROCIN 2% CREAM 30GM TOP ×2 (09:02→22:10)
[2017-12-03] MEDS: NICOTINE 21MG/24HR 1 EA TRANSDERMAL TD (09:03)
[2017-12-03] MEDS: TOPIRAMATE (TopAMAX) 25 MG TAB PO ×3 (09:03→22:10)
[2017-12-03] MEDS: EUCERIN 120GM CREAM TOP ×2 (09:03→22:10)
[2017-12-03] MEDS: buPROPion 75 MG TAB PO (09:03)
[2017-12-03] MEDS: PROPRANOLOL 10 MG TAB PO ×2 (09:03→22:09)
[2017-12-03] MEDS: traZODone 50 MG TAB PO (22:09)
[2017-12-04] MEDS: PROPRANOLOL 10 MG TAB PO ×2 (08:15→21:48)
[2017-12-04] MEDS: TOPIRAMATE (TopAMAX) 25 MG TAB PO ×3 (08:15→21:48)
[2017-12-04] MEDS: buPROPion 75 MG TAB PO (08:15)
[2017-12-04] MEDS: NICOTINE 21MG/24HR 1 EA TRANSDERMAL TD (08:16)
[2017-12-04] MEDS: MUPIROCIN 2% CREAM 30GM TOP ×2 (08:17→21:51)
[2017-12-04] MEDS: EUCERIN 120GM CREAM TOP ×2 (08:17→21:51)
[2017-12-04] MEDS: traZODone 50 MG TAB PO (21:47)
[2017-12-05] MEDS: buPROPion 75 MG TAB PO (08:47)
[2017-12-05] MEDS: TOPIRAMATE (TopAMAX) 25 MG TAB PO (08:47)
[2017-12-05] MEDS: EUCERIN 120GM CREAM TOP (08:49)
[2017-12-05] MEDS: MUPIROCIN 2% CREAM 30GM TOP (08:49)
[2017-12-05] MEDS: PROPRANOLOL 10 MG TAB PO (08:49)
[2017-12-05] MEDS: NICOTINE 21MG/24HR 1 EA TRANSDERMAL TD (08:50)
== END 2017-12-05 11:45 | disposition home or self-care (01) | DRG 885 ==
LOC: M ED 23:59 → M ED INP 11-28 02:09 → M PSY 11-28 02:44
DX: F33.2 Major depressive disorder, recurrent severe without psychotic features (principal); F43.10 Post-traumatic stress disorder, unspecified; F60.3 Borderline personality disorder; G43.709 Chronic migraine without aura, not intractable, without status migrainosus; G25.0 Essential tremor; F17.210 Nicotine dependence, cigarettes, uncomplicated; Z81.8 Family history of other mental and behavioral disorders; Z79.899 Other long term (current) drug therapy